=== PATIENT | female | born 1960 | race Caucasian/White ===

== ENCOUNTER → 2017-05-07 | Outpatient (CLI) | payer OTHER ==
[~2017-05-07] MED LIST: CLONIDINE0.1 M1 PO; HYDROCHLOROTHIA25 M1 PO; HYDROXYZINE HCL25 M1 PO; LEXAPRO 10 MG T10 MG PO; LISINOPRIL 10MG10 MG PO; PREDNISONE20 MG PO
--- NOTE | 2017-05-07 11:29 | RADIOLOGY REPORT PS360 ---
CHEST(2 VIEWS-NOT PORTABLE) HISTORY: FU ABNOMRAL CXR ORDERING PHYSICIAN: KIRILL ALLEN PATIENT AGE: 56 years COMPARISON: None available FINDINGS: Unremarkable cardiovascular structures. There is minimal blunting of the left costophrenic sulcus suggesting small left effusion. No lobar consolidation or collapse. Degenerative changes are present in the thoracic spine. There may be some coronary artery calcification noted on the lateral view. IMPRESSION: Trace left pleural effusion Possible coronary artery calcification
== END ==
LOC: RAD 10:52
DX: R93.8 Abnormal findings on diagnostic imaging of other specified body structures (principal)